=== PATIENT | female | born 1945 | race Asian ===

== ENCOUNTER → 2018-08-18 | Outpatient (CLI) | payer MEDICARE, OTHER ==
[~2018-08-18] MED LIST: GLIP5TAB11 PO; LISI-662 PO; METF-960 PO; OMEP20 PO
== END | disposition home or self-care (01) ==
LOC: RADPV 08:57
PROVIDERS: ATTEND Internal Medicine Nephrology
DX: N28.1 Cyst of kidney, acquired (principal); E11.9 Type 2 diabetes mellitus without complications; R80.9 Proteinuria, unspecified
CPT/HCPCS: 76770; 93880

== ENCOUNTER → 2018-09-28 | Outpatient (CLI) | payer MEDICARE, OTHER ==
[2018-09-28 13:06] LABS: APPEARANCE,URINE CLEAR (CLEAR); BILIRUBIN,URINE NEGATIVE (NEGATIVE); GLUCOSE, URINE (UA) NEGATIVE (NEGATIVE); KETONES,URINE NEGATIVE (NEGATIVE); LEUKOCYTE ESTERASE ,URINE TRACE (NEGATIVE); NITRATE,URINE NEGATIVE (NEGATIVE); OCCULT BLOOD,URINE TRACE (NEGATIVE); PH,URINE 5.5 (5.0-8.0); PROTEIN,URINE SEE CONFIRM (NEGATIVE); UROBILINOGEN,URINE 0.2 mg/dL (<=1.0)
[2018-09-28 13:17] LABS: CALCIUM, TOTAL 10.2 mg/dL (8.8-10.5); CHOL/HDL RATIO 3.9 (3.9-5.7); CREATININE 1.23 mg/dL (0.60-1.30); POTASSIUM 4.1 mmol/L (3.5-5.1)
[2018-09-28 13:23] LABS: BACTERIA,URINE None Seen /HPF (None Seen); RBC,URINE 0-2 /HPF (0-2); SULFOSALICYLIC ACID,URINE 1+ (Negative); WBC,URINE 0-2 /HPF (0-5)
[2018-09-28 14:00] LABS: CREATININE,URINE 46.5 mg/dL (30.0-125.0)
[2018-09-28 14:03] LABS: CREATININE,SERUM FOR CRCL 1.23 mg/dL (0.60-1.30)
== END | disposition home or self-care (01) ==
LOC: LABPV 12:05
PROVIDERS: ATTEND Internal Medicine Nephrology
DX: E11.9 Type 2 diabetes mellitus without complications (principal); R80.9 Proteinuria, unspecified
CPT/HCPCS: 81050; 82575; 84156; 84300

== ENCOUNTER 2020-12-25 08:59 | Emergency (ER) | payer MEDICARE, OTHER ==
[~2020-12-25] VITALS: Ht 149.9 cm; Wt 54.5 kg
[~2020-12-25 08:59] MED LIST changes: -LISI-662 PO; +LISI-894 PO; +METF-1211 PO; -METF-960 PO
[2020-12-25] MEDS ORDERED: ALLO100T2 PO (09:11)
[2020-12-25] MEDS ORDERED: ASPI-1450 PO (09:11)
[2020-12-25] MEDS ORDERED: NAPROXEN 250 MG TABLET PO ONE (10:30)
[2020-12-25 11:43] VITALS: BP 129/66
== END 2020-12-25 11:53 | disposition home or self-care (01) ==
LOC: EMS 08:59
DX: S83.92XA Sprain of unspecified site of left knee, initial encounter (principal); E11.9 Type 2 diabetes mellitus without complications; I10 Essential (primary) hypertension; Z90.89 Acquired absence of other organs; Z79.82 Long term (current) use of aspirin; Z79.84 Long term (current) use of oral hypoglycemic drugs; W19.XXXA Unspecified fall, initial encounter; Y93.01 Activity, walking, marching and hiking; Y92.89 Other specified places as the place of occurrence of the external cause; Y99.8 Other external cause status
CPT/HCPCS: 73503; 99285

== ENCOUNTER 2021-09-02 20:04 | Emergency (ER) | payer MEDICARE, OTHER ==
[~2021-09-02] VITALS: Ht 154.9 cm; Wt 50.0 kg
[~2021-09-02 20:04] MED LIST changes: +ALLO-97 PO; +ASPI-1450 PO
[2021-09-02] MEDS ORDERED: ALBU8HFA IH (20:15)
[2021-09-02] MEDS ORDERED: METO-408 PO (20:15)
[2021-09-02] MEDS ORDERED: ATOR20TA65 PO (20:15)
[2021-09-02 21:41] LABS: COVID AG,FIA SOURCE NASAL SWAB
[2021-09-02 22:04] LABS: INFLUENZA TYPE A NEGATIVE FOR TYPE A (NEGATIVE); INFLUENZA TYPE B NEGATIVE FOR TYPE B (NEGATIVE)
[2021-09-02 22:33] VITALS: BP 152/88
== END 2021-09-02 23:09 | disposition home or self-care (01) ==
LOC: EMS 20:07
DX: U07.1 COVID-19 (principal); E11.9 Type 2 diabetes mellitus without complications; I10 Essential (primary) hypertension; Z90.49 Acquired absence of other specified parts of digestive tract
CPT/HCPCS: 71045; 87804; 99284; 36415-L1; 36415-TC

== ENCOUNTER 2022-07-26 11:33 | Emergency (ER) | payer MEDICARE, OTHER ==
[~2022-07-26] VITALS: Ht 152.4 cm; Wt 54.5 kg
[~2022-07-26 11:33] MED LIST changes: +ALBU18HF12 IH; +ATOR20TA65 PO; +METO-408 PO
[2022-07-26] MEDS ORDERED: ICOS1CAP PO (11:38)
[2022-07-26] MEDS ORDERED: OMEG-136 PO (11:38)
[2022-07-26] MEDS ORDERED: PRED5TAB2 PO (11:38)
[2022-07-26] MEDS ORDERED: ALLO100T PO (11:38)
[2022-07-26 14:34] LABS: BASOPHILS % (AUTO) 0.2 % (0.0-2.0); EOSINOPHILS % (AUTO) 0.1 % (1.0-6.0); HEMATOCRIT 30.5 % (36-46); HEMOGLOBIN 9.9 g/dL (12.0-16.0); LYMPHOCYTES # (AUTO) 0.8 K/uL (1.0-4.8); LYMPHOCYTES % (AUTO) 4.5 % (22.0-44.0); MEAN CORPUSCULAR HEMOGLOBIN 30.9 pg (26.0-34.0); MEAN CORPUSCULAR HGB CONC 32.5 G/dL (31.0-37.0); MEAN CORPUSCULAR VOLUME 95 fL (80-100); MONOCYTES # (AUTO) 1.2 K/uL (0.1-1.0); MONOCYTES % (AUTO) 6.7 % (2.0-9.0); NEUTROPHILS # (AUTO) 16.2 K/uL (1.8-7.7); NEUTROPHILS % (AUTO) 88.5 % (40.0-70.0); PLATELET COUNT (AUTO) 234 K/uL (150-450); RED BLOOD CELL COUNT(AUTO) 3.21 MIL/uL (4.00-5.20); RED CELL DISTRIBUTION WIDTH 15.2 % (11.5-14.5)
[2022-07-26 14:40] LABS: CALCIUM, TOTAL 9.6 mg/dL (8.8-10.5); CREATININE 1.48 mg/dL (0.60-1.30); POTASSIUM 3.9 mmol/L (3.5-5.1)
[2022-07-26 14:46] LABS: BILIRUBIN,TOTAL 0.9 mg/dL (0.1-1.0); TOTAL PROTEIN, SERUM 8.2 g/dL (6.4-8.2)
[2022-07-26] MEDS ORDERED: MethylPREDNISolone SOD SUCC 125 MG/2 ML VIAL IVP ONE (17:30)
[2022-07-26 17:48] LABS: URIC ACID 5.1 mg/dL (2.6-7.2)
[2022-07-26] MEDS ORDERED: AMLO5TAB66 PO (17:54)
[2022-07-26] MEDS ORDERED: MethylPREDNISolone SOD SUCC 125 MG/2 ML VIAL IM ONE (18:15)
[2022-07-26] MEDS ORDERED: COLCHICINE 0.6 MG TABLET PO ONE ×2 (18:30→21:00)
[2022-07-26] MEDS ORDERED: COLC0.6T68 PO (19:03)
[2022-07-26 20:59] LABS: APPEARANCE,URINE CLEAR (CLEAR); BILIRUBIN,URINE NEGATIVE (NEGATIVE); GLUCOSE, URINE (UA) NEGATIVE (NEGATIVE); KETONES,URINE NEGATIVE (NEGATIVE); LEUKOCYTE ESTERASE ,URINE NEGATIVE (NEGATIVE); NITRATE,URINE NEGATIVE (NEGATIVE); OCCULT BLOOD,URINE SMALL (NEGATIVE); PH,URINE 5.5 (5.0-8.0); PROTEIN,URINE 100-200,SEE CONFIRM mg/dL (NEGATIVE); SPECIFIC GRAVITIY, URINE 1.019 (1.003-1.030)
[2022-07-26 21:52] LABS: SULFOSALICYLIC ACID,URINE 4+ (Negative)
[2022-07-26 21:56] LABS: BACTERIA,URINE None Seen /HPF (None Seen); RBC,URINE 0-2 /HPF (0-2); SQUAMOUS EPITHELIAL CELL,UR Few /LPF (None Seen); WBC,URINE 0-2 /HPF (0-5)
[2022-07-26 23:11] VITALS: BP 104/64
== END 2022-07-26 23:28 | disposition home or self-care (01) ==
LOC: EMS 11:35
DX: M10.062 Idiopathic gout, left knee (principal); E11.9 Type 2 diabetes mellitus without complications; I10 Essential (primary) hypertension; F17.210 Nicotine dependence, cigarettes, uncomplicated; Z90.89 Acquired absence of other organs; Z79.899 Other long term (current) drug therapy; Z79.84 Long term (current) use of oral hypoglycemic drugs
CPT/HCPCS: 99285; 80053; 81001; 82962; 84550; 85025; 36415; 73562; 96372; 81002; J2930

== ENCOUNTER 2022-08-25 16:37 | Emergency (ER) | payer MEDICARE, OTHER ==
[~2022-08-25] VITALS: Ht 152.4 cm; Wt 50.0 kg
[~2022-08-25 16:37] MED LIST changes: -ALBU18HF12 IH; +AMIO200 PO; +AMLO5TAB66 PO; +APIX2.5T PO; +COLC0.6T73 PO; +FLUT1BLS IH; +GUAI-1217 PO; +ICOS1CAP PO; -METO-408 PO; +METO25 PO; +OMEG-136 PO; +PANT-31 PO; +TIOT185 IH
[2022-08-25 16:43] VITALS: TEMP 99
[2022-08-25 18:23] LABS: BASOPHILS % (AUTO) 0.7 % (0.0-2.0); HEMATOCRIT 25.7 % (36-46); HEMOGLOBIN 8.4 g/dL (12.0-16.0); LYMPHOCYTES % (AUTO) 13.3 % (22.0-44.0); MEAN CORPUSCULAR HEMOGLOBIN 30.6 pg (26.0-34.0); MEAN CORPUSCULAR HGB CONC 32.7 G/dL (31.0-37.0); MEAN CORPUSCULAR VOLUME 94 fL (80-100); MONOCYTES # (AUTO) 0.8 K/uL (0.1-1.0); MONOCYTES % (AUTO) 4.9 % (2.0-9.0); NEUTROPHILS % (AUTO) 78.1 % (40.0-70.0); PLATELET COUNT (AUTO) 678 K/uL (150-450); RED BLOOD CELL COUNT(AUTO) 2.75 MIL/uL (4.00-5.20); RED CELL DISTRIBUTION WIDTH 16.6 % (11.5-14.5)
[2022-08-25 18:32] LABS: CALCIUM, TOTAL 9.2 mg/dL (8.8-10.5); CREATININE 1.14 mg/dL (0.60-1.30)
[2022-08-25 18:40] VITALS: BP 134/68; PULSE 88; RESP 16
== END 2022-08-25 19:14 | disposition home or self-care (01) ==
LOC: EMS 16:37
DX: R07.89 Other chest pain (principal); D72.829 Elevated white blood cell count, unspecified; D64.9 Anemia, unspecified; E11.9 Type 2 diabetes mellitus without complications; I10 Essential (primary) hypertension; J44.9 Chronic obstructive pulmonary disease, unspecified; M10.9 Gout, unspecified; I48.91 Unspecified atrial fibrillation; F17.210 Nicotine dependence, cigarettes, uncomplicated; Z90.49 Acquired absence of other specified parts of digestive tract
CPT/HCPCS: 71045; 80048; 82962; 84484; 85025; 93005; 99285; 36415-L1; 36415-TC

== ENCOUNTER 2023-04-19 20:01 | Emergency (ER) | payer MEDICARE, OTHER ==
[~2023-04-19] VITALS: Ht 152.4 cm; Wt 50.0 kg
[~2023-04-19 20:01] MED LIST changes: +CEPH-558 PO; -GLIP5TAB11 PO; +GLIP5TAB15 PO; -GUAI-1217 PO; -OMEP20 PO
[2023-04-19 20:13] VITALS: TEMP 98.4
[2023-04-19 20:58] LABS: BASOPHILS % (AUTO) 1.8 % (0.0-2.0); EOSINOPHILS % (AUTO) 7.8 % (1.0-6.0); HEMATOCRIT 29.5 % (36-46); HEMOGLOBIN 9.7 g/dL (12.0-16.0); LYMPHOCYTES % (AUTO) 22.5 % (22.0-44.0); MEAN CORPUSCULAR HGB CONC 32.8 G/dL (31.0-37.0); MEAN CORPUSCULAR VOLUME 95 fL (80-100); MONOCYTES # (AUTO) 0.6 K/uL (0.1-1.0); MONOCYTES % (AUTO) 6.4 % (2.0-9.0); NEUTROPHILS # (AUTO) 5.4 K/uL (1.8-7.7); NEUTROPHILS % (AUTO) 61.5 % (40.0-70.0); PLATELET COUNT (AUTO) 295 K/uL (150-450); RED BLOOD CELL COUNT(AUTO) 3.11 MIL/uL (4.00-5.20); RED CELL DISTRIBUTION WIDTH 15.5 % (11.5-14.5); WHITE BLOOD COUNT (AUTO) 8.7 K/uL (4.5-11.0)
[2023-04-19 21:04] LABS: COVID AG,FIA SOURCE NASAL SWAB
[2023-04-19 21:07] LABS: CREATININE 1.3 mg/dL (0.60-1.30); POTASSIUM 3.7 mmol/L (3.5-5.1)
[2023-04-19 21:08] LABS: CALCIUM, TOTAL 8.7 mg/dL (8.8-10.5)
[2023-04-19 21:15] LABS: TROPONIN I-HIGH SENSITIVITY 24 ng/L (<51)
[2023-04-19 21:32] LABS: ALBUMIN 3.5 g/dL (3.4-5.0); BILIRUBIN,TOTAL 0.2 mg/dL (0.1-1.0)
[2023-04-19 21:36] LABS: SARS-COV2 (COVID) ANTIGEN,FIA Negative (Negative)
[2023-04-19 21:37] LABS: INFLUENZA TYPE A NEGATIVE FOR TYPE A (NEGATIVE); INFLUENZA TYPE B NEGATIVE FOR TYPE B (NEGATIVE)
[2023-04-19 23:20] VITALS: BP 143/90; PULSE 99; RESP 18
== END 2023-04-19 23:28 | disposition home or self-care (01) ==
LOC: EMS 20:02
DX: R06.02 Shortness of breath (principal); J44.9 Chronic obstructive pulmonary disease, unspecified; E11.9 Type 2 diabetes mellitus without complications; F17.210 Nicotine dependence, cigarettes, uncomplicated; I11.0 Hypertensive heart disease with heart failure; Z98.890 Other specified postprocedural states; Z20.822 Contact with and (suspected) exposure to COVID-19
CPT/HCPCS: 71045; 80053; 82550; 83880; 84484; 85025; 87804; 93005; 99285; 36415-L1; 36415-TC

== ENCOUNTER 2024-11-28 12:14 | Emergency (ER) | payer MEDICARE, OTHER ==
[~2024-11-28] VITALS: Ht 152.4 cm; Wt 43.8 kg
[~2024-11-28 12:14] MED LIST changes: -ALLO-97 PO; -AMIO200 PO; -AMLO5TAB66 PO; -ASPI-1450 PO; -CEPH-558 PO; -COLC0.6T73 PO; -GLIP5TAB15 PO; -ICOS1CAP PO; -LISI-894 PO; -METF-1211 PO; -OMEG-136 PO; -PANT-31 PO; -TIOT185 IH
[2024-11-28 12:19] VITALS: TEMP 98.2
[2024-11-28 13:40] LABS: APPEARANCE,URINE HAZY (CLEAR); GLUCOSE, URINE (UA) NEGATIVE (NEGATIVE); LEUKOCYTE ESTERASE ,URINE SMALL (NEGATIVE); NITRATE,URINE NEGATIVE (NEGATIVE); OCCULT BLOOD,URINE NEGATIVE (NEGATIVE); SPECIFIC GRAVITIY, URINE 1.013 (1.003-1.030)
[2024-11-28] MEDS: PHENAZOPYRIDINE HCL 100 MG TABLET PO ONE (13:51)
[2024-11-28 13:57] LABS: SQUAMOUS EPITHELIAL CELL,UR Few /LPF (None Seen)
[2024-11-28 14:05] LABS: PLATELET COUNT (AUTO) 274 K/uL (150-450); RED BLOOD CELL COUNT(AUTO) 2.78 MIL/uL (4.00-5.20); RED CELL DISTRIBUTION WIDTH 14.1 % (11.5-14.5); WHITE BLOOD COUNT (AUTO) 6.1 K/uL (4.5-11.0)
[2024-11-28 14:13] LABS: CALCIUM, TOTAL 8.9 mg/dL (8.8-10.5); CREATININE 2.17 mg/dL (0.60-1.30); GLOMERULAR FILTR. RATE CALC 22.0 mL/min (>60); GLUCOSE,RANDOM 141.0 mg/dL (70-110); SODIUM SERUM 136.0 mmol/L (136-145); UREA NITROGEN, BLOOD 56.0 mg/dL (7-18)
[2024-11-28] MEDS ORDERED: CEPH-558 PO (14:57)
[2024-11-28] MEDS ORDERED: PHEN-846 PO (14:58)
[2024-11-28 15:04] VITALS: BP 130/61; PULSE 90; RESP 18; O2SAT 99
[2024-11-28] MEDS: CEPHALEXIN MONOHYDRATE 500 MG CAPSULE PO ONE (15:07)
[2024-11-28 20:31] LABS: GLUCOMETER DEV NAME(LOC) ERT.7; GLUCOSE,POINT OF CARE 156 MG/DL (70-110)
== END 2024-11-28 15:16 | disposition home or self-care (01) ==
LOC: EMS 12:14
DX: N39.0 Urinary tract infection, site not specified (principal); E11.9 Type 2 diabetes mellitus without complications; I10 Essential (primary) hypertension; J44.9 Chronic obstructive pulmonary disease, unspecified; I48.91 Unspecified atrial fibrillation; F17.210 Nicotine dependence, cigarettes, uncomplicated; M10.9 Gout, unspecified; Z79.01 Long term (current) use of anticoagulants; Z79.51 Long term (current) use of inhaled steroids; Z90.49 Acquired absence of other specified parts of digestive tract
CPT/HCPCS: 80048; 81001; 82962; 85025; 99283